=== PATIENT | female | born 1975 | race Caucasian/White ===

== ENCOUNTER → 2017-01-21 | Outpatient (CLI) | payer MEDICARE ==
[2015-02-07 17:40] VITALS: BP 169/100
[~2017-01-21] MED LIST: OXYC-323 PO
--- NOTE | 2017-01-21 15:17 | RAD ---
Indication pain. No history of recent injury. AP oblique and lateral views of both knees were obtained. Views of the right knee demonstrate postoperative changes. There may be a small loose body in the joint. There is a small joint effusion. An acute bony finding or evidence of complication associated with orthopedic hardware is not seen. Views of the left knee demonstrate small osteophytes involving the medial joint space compartment an acute finding is not seen. Advanced degenerative changes are not seen. IMPRESSION: No acute or significant finding seen involving either knee
== END | disposition home or self-care (01) ==
LOC: DXRADRC 14:10
PROVIDERS: ATTEND Family Medicine
DX: M25.561 Pain in right knee (principal); M25.562 Pain in left knee
CPT/HCPCS: 73562